=== PATIENT | female | born 1960 ===

== ENCOUNTER 2020-11-03 05:27 | Day surgery (SDC) | payer OTHER ==
[~2020-11-03 05:27] MED LIST: HORIZANT300 MG PO
== END 2020-11-03 17:20 | disposition home or self-care (01) ==
LOC: CIR.AMB 05:27
PROVIDERS: ATTEND Anesthesiology Pain Medicine
DX: M47.892 Other spondylosis, cervical region (principal); Z20.822 Contact with and (suspected) exposure to COVID-19

== ENCOUNTER 2021-02-07 15:36 | Outpatient (CLI) | payer OTHER | END 2021-02-07 15:45 | disposition home or self-care (01) | LOC: RAD 15:36 | PROVIDERS: ATTEND Anesthesiology Pain Medicine | DX: M41.9 Scoliosis, unspecified (principal); M85.80 Other specified disorders of bone density and structure, unspecified site ==